=== PATIENT | female | born 1985 | race Caucasian/White ===

== ENCOUNTER 2016-08-06 15:59 | Emergency (ER) | payer OTHER | END 2016-08-06 17:02 | disposition home or self-care (01) | LOC: ER 15:59 | DX: K02.9 Dental caries, unspecified (principal); Z79.899 Other long term (current) drug therapy; Z88.1 Allergy status to other antibiotic agents | CPT/HCPCS: 96372; 99282-25 ==

== ENCOUNTER 2016-08-24 22:36 | Emergency (ER) | payer OTHER | END 2016-08-25 01:38 | disposition home or self-care (01) | LOC: ER 22:36 | DX: S13.4XXA Sprain of ligaments of cervical spine, initial encounter (principal); M25.512 Pain in left shoulder; V43.52XA Car driver injured in collision with other type car in traffic accident, initial encounter; Y92.413 State road as the place of occurrence of the external cause; Z88.1 Allergy status to other antibiotic agents; Z79.899 Other long term (current) drug therapy | CPT/HCPCS: 72040; 72100; 73030; 81025; 99283-25 ==